=== PATIENT | male | born 1970 | race Two or more races ===

== ENCOUNTER → 2020-01-03 | Outpatient (CLI) | payer OTHER | END | disposition home or self-care (01) | LOC: RAD 15:53 | PROVIDERS: ATTEND Orthopaedic Surgery | DX: M25.552 Pain in left hip (principal) ==

== ENCOUNTER 2020-01-24 14:49 | Outpatient (CLI) | payer OTHER | END 2020-01-24 15:01 | disposition home or self-care (01) | LOC: RAD 14:49 | PROVIDERS: ATTEND Orthopaedic Surgery | DX: M25.552 Pain in left hip (principal); M25.551 Pain in right hip; Z76.89 Persons encountering health services in other specified circumstances ==